=== PATIENT | male | born 1945 | race Caucasian/White ===

== ENCOUNTER 2016-08-07 12:32 | Emergency (ER) | payer MEDICAID ==
[~2016-08-07] VITALS: Ht 182.9 cm; Wt 97.5 kg
[~2016-08-07 12:32] MED LIST: OMEP10CA4 PO
--- NOTE | 2016-08-07 12:40 | NUR ---
AAOX3, BIBRA C/O MIDSTERNAL CHEST PAIN NON RADIATING, 2 SPRAY OF NITRO GIVEN IN THE FIELD DISTRICT ASSOCIATE JUDGE. RESP IS EVEN AND UNLABORED WITH NAD NOTED. SKIN IS WARM AND DRY. PLACED ON HOSPITAL GOWN, AND TOOL CRIB CLERK. WILL CONTINUOUSLY MONITOR THE PATIENT. AWAITING MD FOR EVAL.
--- NOTE | 2016-08-07 12:41 | NUR ---
DR PIERSON AT BS FOR JAE.
--- NOTE | 2016-08-07 12:45 | NUR ---
AT FOR JAE. PT REPORTS THAT HE HAS BEEN DRINKING NON-STOP FOR A MONTH, LAST ALCOHOL INTAKE WAS AT 0800 TODAY.
--- NOTE | 2016-08-07 12:46 | NUR ---
L HAND #20 IVHL NOTED VB NET DEVELOPER.
--- NOTE | 2016-08-07 12:59 | NUR ---
INSERTED IVHL RFA #18G, BLOOD DRAWN SENT TO THE LAB
[2016-08-07] MEDS ORDERED: IV NS 0.9% 1,000 ML ONE (13:03)
[2016-08-07] MEDS ORDERED: ONDANSETRON HCL/PF 4 MG/2 ML VIAL ONE ×2 (13:03→15:07)
[2016-08-07] MEDS ORDERED: IV SET PRIMARY PUMP SET 1 EA INFUS.SET MC ONE (13:03)
[2016-08-07] MEDS ORDERED: PANTOPRAZOLE 40 MG VIAL ONE (13:03)
[2016-08-07 13:06] LABS: BASOPHILS % (AUTO) 0.9 % (0.0-2.0); EOSINOPHILS # (AUTO) 0.1 /CMM (0.0-0.7); HEMATOCRIT 40 % (39-51); HEMOGLOBIN 13.5 g/dL (13.5-17.5); LYMPHOCYTES # (AUTO) 1.4 /CMM (0.8-4.8); LYMPHOCYTES % (AUTO) 32.3 % (20.0-44.0); MEAN CORPUSCULAR HEMOGLOBIN 31 PG (26.0-33.0); MEAN CORPUSCULAR HGB CONC 33 g/dl (31.0-36.0); MEAN CORPUSCULAR VOLUME 92 fL (80-96); MONOCYTES # (AUTO) 0.3 /CMM (0.1-1.30); NEUTROPHILS # (AUTO) 2.4 /CMM (1.8-8.9); NEUTROPHILS % (AUTO) 56.8 % (43.0-81.0); PLATELET COUNT (AUTO) 187 /CMM (150-450); RED BLOOD CELL COUNT(AUTO) 4.39 MIL/uL (4.5-6.0); WHITE BLOOD COUNT (AUTO) 4.3 K/uL (4.3-11.0)
[2016-08-07 13:17] LABS: CARBON DIOXIDE 26 mmol/L (21-32); CHLORIDE 107 mmol/L (98-107); CREATININE 0.9 mg/dL (0.6-1.3); GFR 84 mL/min (>60); GLUCOSE 107 mg/dL (74-106); POTASSIUM 3.6 mmol/L (3.5-5.1); SODIUM SERUM 143 mmol/L (136-145); UREA NITROGEN, BLOOD 11 mg/dL (7-18)
[2016-08-07 13:22] LABS: INR 1.06 (0.87-1.13)
[2016-08-07 13:26] LABS: TROPONIN I < 0.017 ng/mL (0.00-0.056)
[2016-08-07] MEDS ORDERED: PANTOPRAZOLE 40 MG VIAL IV ONE (13:30)
[2016-08-07] MEDS ORDERED: ONDANSETRON HCL/PF 4 MG/2 ML VIAL IVP ONE (13:30)
[2016-08-07] MEDS ORDERED: IV NS 0.9% 1,000 ML BAG IV ONE (13:30)
--- NOTE | 2016-08-07 15:15 | NUR ---
ADDITIONAL ZOFRAN IVP GIVEN ORDERED
[2016-08-07] MEDS ORDERED: ONDANSETRON HCL/PF 4 MG/2 ML VIAL IV ONE (15:30)
--- NOTE | 2016-08-07 16:48 | NUR ---
CALLED FOR FOOD TRAY
--- NOTE | 2016-08-07 17:30 | NUR ---
IV removed. Catheter intact and site benign. Pressure and 4x4 applied to site. No bleeding noted.
--- NOTE | 2016-08-07 17:40 | NUR ---
Patient discharged to home in stable condition. Written and verbal after care instructions given. Patient verbalizes understanding of instruction. Pt ambulatory with a steady gait.
[2016-08-07 18:04] VITALS: BP 126/77
== END 2016-08-07 18:05 | disposition home or self-care (01) ==
LOC: ER 12:36
DX: R07.89 Other chest pain (principal); K21.9 Gastro-esophageal reflux disease without esophagitis; K74.60 Unspecified cirrhosis of liver; Z86.73 Personal history of transient ischemic attack (TIA), and cerebral infarction without residual deficits; F10.20 Alcohol dependence, uncomplicated
CPT/HCPCS: 36415; 71010; 80048; 84484 ×2; 85025; 85730; 93005; 96361; 96374; 96375; 96376; 99285; A4606; C9113; J2405 ×2; J7030; Z7610

== ENCOUNTER 2016-12-23 23:27 | Emergency (ER) | payer MEDICAID ==
[~2016-12-23] VITALS: Ht 175.3 cm; Wt 79.8 kg
--- NOTE | 2016-12-24 00:30 | NUR ---
pt to er bed. 71 yo male bb self, states he feel depressed since his farther , denies SI/ HI at this time. skin warm and dry, rr even and unlabored. pt gowned, placed on groundwater monitoring technician. awaiting orders from provider, will continue to monitor
[2016-12-24 00:55] LABS: CALCIUM, SERUM 8.4 mg/dL (8.5-10.1); CREATININE 0.8 mg/dL (0.6-1.3); POTASSIUM 3.8 mmol/L (3.5-5.1)
--- NOTE | 2016-12-24 00:56 | NUR ---
geotechnical laboratory technician at bed side for blood draw
[2016-12-24 00:59] LABS: ALBUMIN 3.8 g/dL (3.4-5.0); BILIRUBIN,DIRECT 0.1 mg/dL (0.0-0.2); BILIRUBIN,TOTAL 0.5 mg/dL (0.2-1.0); TOTAL PROTEIN, SERUM 7.9 g/dL (6.4-8.2)
--- NOTE | 2016-12-24 01:00 | NUR ---
urine sample obtained and sent to lab
[2016-12-24 01:01] LABS: SALICYLATE 1.4 mg/dL (2.8-20.0)
[2016-12-24 01:02] LABS: BASOPHILS % (AUTO) 0.6 % (0.0-2.0); EOSINOPHILS # (AUTO) 0.2 /CMM (0.0-0.7); EOSINOPHILS % (AUTO) 3.4 % (0.0-6.0); HEMATOCRIT 39 % (39-51); LYMPHOCYTES # (AUTO) 1.6 /CMM (0.8-4.8); MEAN CORPUSCULAR HEMOGLOBIN 32 PG (26.0-33.0); MEAN CORPUSCULAR HGB CONC 33 g/dl (31.0-36.0); MEAN CORPUSCULAR VOLUME 94 fL (80-96); MONOCYTES # (AUTO) 0.5 /CMM (0.1-1.30); MONOCYTES % (AUTO) 8.7 % (2.0-12.0); NEUTROPHILS # (AUTO) 3.4 /CMM (1.8-8.9); NEUTROPHILS % (AUTO) 59.3 % (43.0-81.0); PLATELET COUNT (AUTO) 190 /CMM (150-450); RDW COEFFICIENT OF VARIATION 13.9 (11.5-15.0); RED BLOOD CELL COUNT(AUTO) 4.12 MIL/uL (4.5-6.0); WHITE BLOOD COUNT (AUTO) 5.8 K/uL (4.3-11.0)
[2016-12-24 01:05] LABS: APPEARANCE,URINE CLEAR (CLEAR); BILIRUBIN,URINE NEGATIVE (NEGATIVE); BLOOD, URINE NEGATIVE Ery/uL (NEGATIVE); COLOR,URINE YELLOW (YELLOW); KETONES,URINE NEGATIVE (NEGATIVE); LEUKOCYTE ESTERASE ,URINE NEGATIVE (NEGATIVE); NITRITE, URINE NEGATIVE (NEGATIVE); PH,URINE 5.5 (5.0-8.0); PROTEIN,URINE NEGATIVE (NEGATIVE); UGLUCOSE NEGATIVE (NEGATIVE); UROBILINOGEN,URINE 0.2 EU/dL (0.2)
--- NOTE | 2016-12-24 01:20 | NUR ---
called Art crisis team
--- NOTE | 2016-12-24 03:00 | NUR ---
art at bed side for eval
--- NOTE | 2016-12-24 03:00 | NUR ---
patient resting in er bed, nad noted, skin warm and dry, resp even and unlabored. will continue to monitor
--- NOTE | 2016-12-24 05:23 | NUR ---
patient resting in er bed, nad noted, skin warm and dry, resp even and unlabored. will continue to monitor
[2016-12-24 07:29] VITALS: BP 122/71
--- NOTE | 2016-12-24 07:30 | NUR ---
Patient discharged to home in stable condition. Written and verbal after care instructions given. Patient verbalizes understanding of instruction. PT ambulatory with a steady gait VITAL SIGNS WITHIN NORMAL LIMITS.
== END 2016-12-24 07:30 | disposition home or self-care (01) ==
LOC: ER 23:31
DX: R45.851 Suicidal ideations (principal); F32.9 Major depressive disorder, single episode, unspecified; K21.9 Gastro-esophageal reflux disease without esophagitis; K74.60 Unspecified cirrhosis of liver; Z86.73 Personal history of transient ischemic attack (TIA), and cerebral infarction without residual deficits
CPT/HCPCS: 36415; 80048-TC; 80076-TC; 80305; 81000-TC; 85025-TC; A4606; G0480; Z7610

== ENCOUNTER 2017-07-29 20:58 | Emergency (ER) | payer MEDICAID ==
[~2017-07-29] VITALS: Ht 167.6 cm; Wt 74.8 kg
--- NOTE | 2017-07-29 20:58 | NUR ---
RAY FROM HOME FOR LEFT SIDED CHEST PAIN 11/08 X 1 HR OFFICE MACHINE TECHNICIAN. PT ADMITS TO ETOH 3 HOURS OFFICE MACHINE TECHNICIAN. VSS NAD. WILL CONTINUE TO MONITOR FOR ANY CHANGES DURING THE SHIFT.
--- NOTE | 2017-07-29 21:21 | NUR ---
BLOOD TAKEN BY MOLD RUNNER
[2017-07-29 21:24] LABS: BASOPHILS % (AUTO) 0.5 % (0.0-2.0); EOSINOPHILS % (AUTO) 1.7 % (0.0-6.0); HEMATOCRIT 37 % (39-51); HEMOGLOBIN 12.9 g/dL (13.5-17.5); LYMPHOCYTES # (AUTO) 2.4 /CMM (0.8-4.8); LYMPHOCYTES % (AUTO) 37.9 % (20.0-44.0); MEAN CORPUSCULAR HGB CONC 35 g/dl (31.0-36.0); MEAN CORPUSCULAR VOLUME 87 fL (80-96); MONOCYTES # (AUTO) 0.4 /CMM (0.1-1.30); NEUTROPHILS # (AUTO) 3.3 /CMM (1.8-8.9); NEUTROPHILS % (AUTO) 53.9 % (43.0-81.0); PLATELET COUNT (AUTO) 254 /CMM (150-450); RDW COEFFICIENT OF VARIATION 12.9 (11.5-15.0); RED BLOOD CELL COUNT(AUTO) 4.25 MIL/uL (4.5-6.0); WHITE BLOOD COUNT (AUTO) 6.3 K/uL (4.3-11.0)
[2017-07-29] MEDS ORDERED: NITROGLYCERIN PACKET 1 GM PACKET ONE (21:27)
[2017-07-29] MEDS ORDERED: ASPIRIN 325 MG TABLET ONE (21:27)
[2017-07-29] MEDS ORDERED: NITROGLYCERIN PACKET 1 GM PACKET TD ONE (21:30)
[2017-07-29] MEDS ORDERED: ASPIRIN 325 MG TABLET PO ONE (21:30)
[2017-07-29 21:36] LABS: CALCIUM, SERUM 8.5 mg/dL (8.5-10.1); CARBON DIOXIDE 28 mmol/L (21-32); CHLORIDE 102 mmol/L (98-107); GLUCOSE 112 mg/dL (74-106); SODIUM SERUM 140 mmol/L (136-145); UREA NITROGEN, BLOOD 16 mg/dL (7-18)
[2017-07-29 21:39] LABS: INR 1.03 (0.85-1.15)
[2017-07-29 21:44] LABS: TROPONIN I < 0.017 ng/mL (0.00-0.056)
[2017-07-29 21:52] LABS: ALANINE AMINOTRANSFERASE 33 U/L (12-78); ALBUMIN 3.9 g/dL (3.4-5.0); ALKALINE PHOSPHATASE 100 U/L (46-116); ASPARTATE AMINOTRANSFERASE 25 U/L (15-37); BILIRUBIN,DIRECT 0.2 mg/dL (0.0-0.2); BILIRUBIN,TOTAL 0.6 mg/dL (0.2-1.0); TOTAL PROTEIN, SERUM 8.2 g/dL (6.4-8.2)
--- NOTE | 2017-07-29 22:06 | NUR ---
PT OKAY7 FOR D/C. TO FIND TRANSPORTATION FOR PT TO HOME
--- NOTE | 2017-07-29 22:46 | NUR ---
PT WITH NO CP. D/C AND INTO TAXI
[2017-07-29 22:47] VITALS: BP 141/78
== END 2017-07-29 22:47 | disposition home or self-care (01) ==
LOC: ER 20:59
DX: R07.89 Other chest pain (principal); F10.10 Alcohol abuse, uncomplicated; K21.9 Gastro-esophageal reflux disease without esophagitis; Z86.73 Personal history of transient ischemic attack (TIA), and cerebral infarction without residual deficits
CPT/HCPCS: 36415; 71045-TC; 80048-TC; 80076-TC; 84484-TC; 85025-TC; 85730-TC; A4606; Z7610

== ENCOUNTER 2018-08-28 21:39 | Inpatient (IN) | payer MEDICAID ==
[~2018-08-28] VITALS: Ht 172.7 cm; Wt 99.8 kg
--- NOTE | 2018-08-28 21:40 | NUR ---
PT PRESENTED TO THE ER WITH A C/O LEFT SIDED CP X 2 DAYS. PT STATED THAT IT FEELS LIKE A SHARP, STABBING PAIN. PT WENT TO ER 11 AND WAS TRIAGED. PT WAS PLACED ON THE MONITOR AND CONTINUOUS PULSE OX. TECH AT THE BEDSIDE TO SET UP FOR EKG.
--- NOTE | 2018-08-28 21:56 | NUR ---
IV STARTED IN RAC. BLOOD WAS DRAWN AND SENT TO LAB.
[2018-08-28] MEDS ORDERED: ASPIRIN 81 MG TAB.CHEW PO ONE ×2 (22:00→23:30)
[2018-08-28 22:08] LABS: BASOPHILS # (AUTO) 0.1 /CMM (0.0-0.2); BASOPHILS % (AUTO) 0.8 % (0.0-2.0); EOSINOPHILS % (AUTO) 1.7 % (0.0-6.0); HEMATOCRIT 41 % (39-51); LYMPHOCYTES # (AUTO) 2.4 /CMM (0.8-4.8); LYMPHOCYTES % (AUTO) 32.1 % (20.0-44.0); MEAN CORPUSCULAR HGB CONC 34 g/dl (31.0-36.0); MEAN CORPUSCULAR VOLUME 90 fL (80-96); MONOCYTES # (AUTO) 0.5 /CMM (0.1-1.30); MONOCYTES % (AUTO) 7.3 % (2.0-12.0); NEUTROPHILS # (AUTO) 4.3 /CMM (1.8-8.9); NEUTROPHILS % (AUTO) 58.1 % (43.0-81.0); PLATELET COUNT (AUTO) 338 /CMM (150-450); RED BLOOD CELL COUNT(AUTO) 4.61 MIL/uL (4.5-6.0); WHITE BLOOD COUNT (AUTO) 7.5 K/uL (4.3-11.0)
[2018-08-28] MEDS ORDERED: ASPIRIN 81 MG TAB.CHEW ONE (22:10)
[2018-08-28 22:14] LABS: CALCIUM, SERUM 8.2 mg/dL (8.5-10.1); CARBON DIOXIDE 27 mmol/L (21-32); CHLORIDE 100 mmol/L (98-107); CREATININE 0.8 mg/dL (0.6-1.3); GLUCOSE 105 mg/dL (74-106); POTASSIUM 3.9 mmol/L (3.5-5.1); SODIUM SERUM 139 mmol/L (136-145); UREA NITROGEN, BLOOD 12 mg/dL (7-18)
--- NOTE | 2018-08-28 22:40 | NUR ---
PT C/O OF HAVING TO URINATE. PT WAS GIVEN THE URINAL AND PT IS USING THE URINAL.
[2018-08-28] MEDS ORDERED: MAG HYDROX/AL HYDROX/SIMETH 30 ML UDC PO PRN ×2 (23:30→23:45)
[2018-08-28] MEDS ORDERED: ACETAMINOPHEN 325 MG TABLET PO PRN ×2 (23:30→23:45)
[2018-08-28] MEDS ORDERED: ONDANSETRON HCL/PF 4 MG/2 ML VIAL IVP PRN (23:30)
[2018-08-28] MEDS ORDERED: HYDROCODONE/APAP 5/325MG 1 EACH TABLET PO PRN (23:30)
[2018-08-28] MEDS ORDERED: Z GUARD REMEDY 2 OZ OINT TP PRN ×2 (23:30→23:45)
[2018-08-28] MEDS ORDERED: ZOLPIDEM TARTRATE 5 MG TABLET PO PRN (23:30)
[2018-08-28] MEDS ORDERED: MAGNESIUM HYDROXIDE 30 ML UDC PO PRN ×2 (23:30→23:45)
--- NOTE | 2018-08-29 00:29 | NUR ---
SENIOR COBOL DEVELOPER NOTE RECEIVED PT IN STABLE CONDITION VIA LILIANA FROM ER. PT IS A&O X3, ABLE TO MAKE NEEDS KNOWN. MOSTLY ICELANDIC SPEAKING, UNDERSTANDS ICELANDIC. NO SIGNS OF SOB OR DISTRESS, NO C/O PAIN. PT REFUSED BODY CHECK TO BE DONE BUT AGREED TO HAVE PHOTOS TAKEN OF LIZZETH. ELBOW RASH. IV IN R AC PATENT AND INTACT. TELE MONITOR READING SINUS IZA 56. ALL BELONGINGS ACCOUNTED AND SIGNED FOR. ALL CURRENT NEEDS MET. BED LOW, LOCKED, UPPER RAILS UP AND CALL LIGHT WITHIN REACH. WILL CONT. TO MONITOR.
[2018-08-29] MEDS ORDERED: ASPIRIN 81 MG TAB.CHEW PO ONE (01:00)
[2018-08-29 01:55] VITALS: BP 114/70
[2018-08-29 04:00] VITALS: BP 110/60
[2018-08-29] MEDS: ONDANSETRON HCL/PF 4 MG/2 ML VIAL IVP PRN ×2 (05:02→21:34)
--- NOTE | 2018-08-29 06:23 | NUR ---
MS RN NOTE PT IS A&O X3, ABLE TO MAKE NEEDS KNOWN. MOSTLY VIETNAMESE SPEAKING, UNDERSTANDS SERBIAN. NO SIGNS OF SOB OR DISTRESS, NO C/O PAIN. IV IN R AC PATENT AND INTACT. TELE MONITOR READING SINUS IZA 62. ALL CURRENT NEEDS MET. BED LOW, LOCKED, UPPER RAILS UP AND CALL LIGHT WITHIN REACH. WILL CONT. TO MONITOR AND ENDORSE TO NEXT SHIFT FOR MATTHEW.
[2018-08-29 06:54] LABS: BASOPHILS % (AUTO) 0.6 % (0.0-2.0); EOSINOPHILS % (AUTO) 1.9 % (0.0-6.0); HEMATOCRIT 39 % (39-51); HEMOGLOBIN 13.3 g/dL (13.5-17.5); LYMPHOCYTES # (AUTO) 2.2 /CMM (0.8-4.8); LYMPHOCYTES % (AUTO) 41.5 % (20.0-44.0); MEAN CORPUSCULAR HGB CONC 34 g/dl (31.0-36.0); MEAN CORPUSCULAR VOLUME 89 fL (80-96); MONOCYTES # (AUTO) 0.4 /CMM (0.1-1.30); MONOCYTES % (AUTO) 7.3 % (2.0-12.0); NEUTROPHILS # (AUTO) 2.6 /CMM (1.8-8.9); NEUTROPHILS % (AUTO) 48.7 % (43.0-81.0); PLATELET COUNT (AUTO) 312 /CMM (150-450); RED BLOOD CELL COUNT(AUTO) 4.36 MIL/uL (4.5-6.0); WHITE BLOOD COUNT (AUTO) 5.3 K/uL (4.3-11.0)
[2018-08-29 07:17] LABS: ALANINE AMINOTRANSFERASE 21 U/L (12-78); ALBUMIN 3.5 g/dL (3.4-5.0); ALKALINE PHOSPHATASE 91 U/L (46-116); ASPARTATE AMINOTRANSFERASE 21 U/L (15-37); BILIRUBIN,TOTAL 0.4 mg/dL (0.2-1.0); CALCIUM, SERUM 8.3 mg/dL (8.5-10.1); CARBON DIOXIDE 28 mmol/L (21-32); CHLORIDE 105 mmol/L (98-107); CREATININE 0.7 mg/dL (0.6-1.3); GLUCOSE 91 mg/dL (74-106); PHOSPHORUS 2.9 mg/dL (2.5-4.9); POTASSIUM 3.9 mmol/L (3.5-5.1); SODIUM SERUM 143 mmol/L (136-145); TOTAL PROTEIN, SERUM 7.2 g/dL (6.4-8.2); UREA NITROGEN, BLOOD 12 mg/dL (7-18)
--- NOTE | 2018-08-29 07:29 | NUR ---
RN OPENING NOTE PT WAS RECEIVED IN BED AT LOWEST AND LOCKED POSITION WITH SIDE RAILS UP X2, A/O X3 DANISH SPEAKING, BREATHING EVEN AND UNLABORED ON RA, COMPLAINTS OF PRESSURE ON CHEST OF 7 OUT OF 10 BUT IN NO DISTRESS, IV IS PATENT AND INTACT, SAFETY PRECAUTIONS IN PLACE, CALL LIGHT WITHIN REACH, WILL MONITOR PT ACCORDINGLY.
[2018-08-29 08:00] VITALS: BP 124/80
[2018-08-29] MEDS ORDERED: LORAZEPAM 1 MG TABLET PO PRN (08:30)
[2018-08-29] MEDS: LORAZEPAM INJ 2 MG/ML VIAL IV PRN ×3 (09:00→23:44)
[2018-08-29] MEDS ORDERED: NITROGLYCERIN 0.4 MG/TAB BOTTLE SL PRN (09:00)
[2018-08-29] MEDS: MULTIVITAMINS,THERAGRAN 1 UDTAB TABLET PO SCH (09:00)
[2018-08-29] MEDS: FOLIC ACID 1 MG TABLET PO SCH (09:00)
[2018-08-29] MEDS: THIAMINE HCL 100 MG TABLET PO SCH (09:00)
[2018-08-29] MEDS: IV NS 0.9% 1,000 ML IV PRN (09:01)
[2018-08-29 10:14] LABS: CHOLESTEROL 165 mg/dL (<200); HDL CHOLESTEROL 44 mg/dL (40-60); LDL 74 mg/dL (0-99); THYROID STIMULATING HORMONE 1.999 uIU/mL (0.358-3.74); TRIGLYCERIDES 346 mg/dL (30-150)
--- NOTE | 2018-08-29 15:07 | NUR ---
RN NOTE SON ELAM PUBLIC INTERVIEWER NOTIFIED OF PT HAVING BRIGHT BLOOD IN STOOL. INFORMED THAT PT HAD TROUBLING POOPING TWO DAYS AGO AND HE FORCED/STRAINED HIMSELF TO GO AND THAT IS WHEN THE BLEEDING STARTED. HE HAD A RECENT BM WHERE HE FORCED HIMSELF AND BRIGHT RED BLOOD WAS NOTED. SON TOBAR NOTIFIED AND ORDERS FOR STOOL SOFTERNER DAILY GIVEN, WILL IMPLEMENT AND MONITOR ACCORDINGLY
[2018-08-29 16:00] VITALS: BP 130/82
[2018-08-29] MEDS ORDERED: DOCUSATE SODIUM 100 MG CAPSULE PO ONE (17:00)
--- NOTE | 2018-08-29 18:17 | NUR ---
RN CLOSING NOTE PT IN BED AT LOWEST AND LOCKED POSITION WITH SIDE RAILS UP X2, A/O X3 BREATHING EVEN AND UNLABORED ON RA WITH NO COMPLAINTS OF ANY PAIN OR DISTRESS AT THIS TIME, IV IS PATENT AND INTACT, SAFETY PRECAUTIONS IN PLACE, CALL LIGHT WITHIN REACH, ALL NEEDS ATTENDED TO, WILL ENDORSE TO MOVIE PROJECTIONIST RN FOR MATTHEW.
--- NOTE | 2018-08-29 19:11 | NUR ---
AIR CARRIER OPERATIONS INSPECTOR OPENING NOTES Received patient A/Ox4, awake, sitting on bed. With patent peripheral IV line RAC G#18 with NS infusing well @75ml/hr. With complaints of fresh blood in stool, patient claimed straining on defecation. Pt just started on Colace today. Instructed patient to avoid straining, increase OFI and fiber in diet. On fall precautions, call light within easy reach. Will continue to monitor accordingly.
[2018-08-29 20:00] VITALS: BP 116/75
[2018-08-29] MEDS: HYDROCODONE/APAP 5/325MG 1 EACH TABLET PO PRN (20:48)
--- NOTE | 2018-08-29 21:10 | NUR ---
Met with patient, he speaks Hebrew only. States he lives alone on te second floor apartment with elevator access. Prior to hospitalization, he was ambulatory and independent with adl's. Has no DME or homehealth reported. He plan to go and stay at his brother's home after discharge. He will take the bus or taxi on dc. Addendum: 08/29/18 at 2111 by HIEN GASCA RN Amended: Links added.
[2018-08-29] MEDS: ZOLPIDEM TARTRATE 5 MG TABLET PO PRN (21:34)
[2018-08-30] VITALS: BP 134/65
[2018-08-30 04:00] VITALS: BP 135/80
[2018-08-30] MEDS: IV NS 0.9% 1,000 ML IV PRN ×2 (04:47→18:22)
[2018-08-30] MEDS: ONDANSETRON HCL/PF 4 MG/2 ML VIAL IVP PRN ×2 (04:51→13:52)
[2018-08-30 06:18] LABS: BASOPHILS % (AUTO) 0.7 % (0.0-2.0); HEMATOCRIT 37 % (39-51); HEMOGLOBIN 12.6 g/dL (13.5-17.5); LYMPHOCYTES # (AUTO) 1.9 /CMM (0.8-4.8); LYMPHOCYTES % (AUTO) 27.9 % (20.0-44.0); MEAN CORPUSCULAR HGB CONC 34 g/dl (31.0-36.0); MEAN CORPUSCULAR VOLUME 89 fL (80-96); MONOCYTES # (AUTO) 0.7 /CMM (0.1-1.30); MONOCYTES % (AUTO) 10.1 % (2.0-12.0); NEUTROPHILS % (AUTO) 59.3 % (43.0-81.0); PLATELET COUNT (AUTO) 274 /CMM (150-450); RED BLOOD CELL COUNT(AUTO) 4.18 MIL/uL (4.5-6.0); WHITE BLOOD COUNT (AUTO) 6.7 K/uL (4.3-11.0)
[2018-08-30 06:23] LABS: CALCIUM, SERUM 7.7 mg/dL (8.5-10.1); CARBON DIOXIDE 29 mmol/L (21-32); CHLORIDE 103 mmol/L (98-107); CREATININE 0.9 mg/dL (0.6-1.3); GLUCOSE 87 mg/dL (74-106); POTASSIUM 3.6 mmol/L (3.5-5.1); SODIUM SERUM 138 mmol/L (136-145); UREA NITROGEN, BLOOD 14 mg/dL (7-18)
[2018-08-30] MEDS: LORAZEPAM INJ 2 MG/ML VIAL IV PRN ×2 (06:32→13:52)
--- NOTE | 2018-08-30 06:32 | NUR ---
HIV CTS SPECIALIST CLOSING NOTES Patient intermittently asleep throughout the shift. Medicated for pain, per patient not effective but refused to have additional pain meds. Medicated for N/V, noted effective. Patient claimed feeling anxious, medicated with Ativan as ordered, noted effective. All nursing needs attended. On fall precautions, call light within easy reach. Endorsed to the next shift. Addendum: 08/30/18 at 0650 by JANAE KAUR RN On tele monitor with NS noted.
--- NOTE | 2018-08-30 07:42 | NUR ---
PIECE WORKER OPENING NOTES RECEIVED PT ASLEEP, EASILY AROUSED. A/O X4. UZBEK SPEAKING AND ABLE TO UNDERSTAND AND SPEAK A LITTLE ALBANIAN. PT TOLERATING RA, WITH NO ACUTE RESPIRATORY DISTRESS NOTED. PT DENIES PAIN OR ANY DISCOMFORT AT THIS TIME. PT ALSO DENIES QUESTIONS AND CONCERNS. PT ON TELEMONITORING WITH SB, HR OF 51. IVF NS AT 75ML/HR TO RAC 18, INTACT AND FLUID INFUSING WELL. PT KEPT COMFORTABLE. PT'S BED IN LOWEST, LOCKED POSITION WITH SR X2. CALL LIGHT KEPT WITHIN REACH. WILL CONTINUE PLAN OF CARE.
[2018-08-30 08:00] VITALS: BP 141/68
[2018-08-30] MEDS ORDERED: FOLI1TAB16 PO (08:24)
[2018-08-30] MEDS ORDERED: THIA100T88 PO (08:24)
[2018-08-30] MEDS ORDERED: LORA-259 PO (08:24)
[2018-08-30] MEDS ORDERED: ONDA4TAB5 PO (08:24)
[2018-08-30] MEDS ORDERED: MULT1CAP34 PO (08:24)
[2018-08-30] MEDS: FOLIC ACID 1 MG TABLET PO SCH (08:46)
[2018-08-30] MEDS: MULTIVITAMINS,THERAGRAN 1 UDTAB TABLET PO SCH (08:46)
[2018-08-30] MEDS: THIAMINE HCL 100 MG TABLET PO SCH (08:46)
[2018-08-30] MEDS ORDERED: DOCUSATE SODIUM 100 MG CAPSULE PO SCH (09:00)
[2018-08-30] MEDS: HYDROCODONE/APAP 5/325MG 1 EACH TABLET PO PRN ×2 (09:05→20:14)
[2018-08-30 16:00] VITALS: BP 132/74
--- NOTE | 2018-08-30 17:58 | NUR ---
RN NOTES THERAPIST RADIATION DT MADE AWARE REGARDING PT'S REQUEST FOR POSTPONED DISCHARGE. INSTEAD OF TODAY, BROTHER WILL BE PICKING PT UP EARLY TOMORROW AROUND6-7AM. BE/BECCA MADE AWARE. WILL LET INCOMING NIGHT NURSE.
--- NOTE | 2018-08-30 18:47 | NUR ---
MS RN CLOSING NOTES PT REMAINS RESTING IN BED, AWAKE. A/O X4. PT TOLERATING RA, WITH NO ACUTE RESPIRATORY DISTRESS NOTED. PT DENIES PAIN OR ANY DISCOMFORT AT THIS TIME. IVF NS AT 75ML/HR TO RAC 18, INTACT AND FLUID INFUSING WELL. ALL NEEDS AND CARE ATTENDED. PT DENIES ANY DIARRHEA AT THIS TIME AND PREFERS NOT TO TAKE STOOL SOFTENERS AT THIS TIME. PT'S DISCHARGE PAPERS ARE DONE AND PT REFUSED FOR PICTURES TO BE TAKEN EARLIER. PT KEPT COMFORTABLE. PT'S BED IN LOWEST, LOCKED POSITION WITH SR X2. CALL LIGHT KEPT WITHIN REACH. WILL ENDORSE TO INCOMING NIGHT NURSE FOR MATTHEW.
--- NOTE | 2018-08-30 18:50 | NUR ---
RN medsurg opening notes Received Pt from morning nurse. Pt is alert and oriented X4. Pt is sitting in bed comfortably watching TV. Respiration is equal and unlabored. Pt denies any pain or any discomfort. No Nausea or vomiting. No diarrhea. Afebrile. IV sites is intact, patent and infusing well NS 0.9% @ 75ml/hr. Safety precautions is maintained. Bed at low position and call light is within reach. Instructed to call. Will continue to monitor and assist all needs.
[2018-08-30 20:00] VITALS: BP 147/79
--- NOTE | 2018-08-30 20:10 | NUR ---
RN medsursirisha notes Pt is complaining of pain on right shoulder 7/10 on pain scale. Administered Norco5-325 Tab/PO. VS is stable. Will continue to monitor.
[2018-08-30] MEDS: ZOLPIDEM TARTRATE 5 MG TABLET PO PRN (22:20)
[2018-08-31] MEDS: LORAZEPAM INJ 2 MG/ML VIAL IV PRN (01:22)
[2018-08-31 06:00] VITALS: BP 141/89
--- NOTE | 2018-08-31 06:15 | NUR ---
TEJ [place] D/C notes Pt is alert and oriented X4. Pt D/C instruction sheet, medicines prescription and a bus voucher card have been given. Pt verbalized understanding medication times, dosages and adverse effect. Instructed Pt to stop drinking alcohol, eating healthy food and reduce stress. Pt verbalized understanding. Skin assessment done and skin pictures taken. Belongings checked list done. D/C Pt at stable condition, BP 141/89, P 84, Temp 98.1, R 18, O2 sat 96%. Pt has been ambulating in the room without chest pain or SOB. Pt escorted via wheel chair and all belongings sent with pt.
== END 2018-08-31 06:15 | disposition home or self-care (01) | DRG 243 ==
LOC: ER 21:44 → TELE 08-29 00:21 → MED 08-30 09:17
PROVIDERS: ADMIT Student in an Organized Health Care Education/Training Program; ATTEND Nurse Practitioner Acute Care
DX: K21.9 Gastro-esophageal reflux disease without esophagitis (principal); K74.60 Unspecified cirrhosis of liver; F10.129 Alcohol abuse with intoxication, unspecified; I25.10 Atherosclerotic heart disease of native coronary artery without angina pectoris; I25.2 Old myocardial infarction; Z86.73 Personal history of transient ischemic attack (TIA), and cerebral infarction without residual deficits; M25.512 Pain in left shoulder
CPT/HCPCS: 36415; 71045-TC; 80048-TC; 80053-TC; 80061-TC; 83735-TC; 84100-TC; 84443-TC; 84484-TC; 85025-TC; 87081-TC; 93307-TC; G0378; J2060; J2405; J7030

== ENCOUNTER 2018-10-06 19:05 | Emergency (ER) | payer MEDICAID ==
[~2018-10-06] VITALS: Ht 172.7 cm; Wt 99.8 kg
[~2018-10-06 19:05] MED LIST changes: +FOLI1TAB16 PO; +LORA-259 PO; +MULT1CAP34 PO; -OMEP10CA4 PO; +ONDA4TAB5 PO; +THIA100T88 PO
--- NOTE | 2018-10-06 19:47 | NUR ---
PT NOW COMPLAINING OF LEFT SIDED CHEST PAIN. PT TO ER BED 7.
--- NOTE | 2018-10-06 19:50 | NUR ---
BIBRA 39, FROM [facility], PER EMT "FOR ETOH AND BEING EMOTIONALLY UPSET". KAZAKH-SPEAKING WITH SOME COMPREHENSION OF THAI. STATES HAVING LEFT-SIDED CHEST PAIN THAT IS 7/10. ALSO STATES HAVING "PROBLEMS", DID NOT ELABORATE. HAD 7 BEERS TONIGHT AND "DOES NOT TAKE BP MED WHEN HE DRINKS". ON MONITOR AND SEEN BY DR ARMSTRONG. AWAITING ORDERS.
[2018-10-06] MEDS ORDERED: ONDANSETRON HCL/PF 4 MG/2 ML VIAL ONE (20:09)
[2018-10-06] MEDS ORDERED: FAMOTIDINE/PF INJ 20 MG/2 ML VIAL IV ONE ×2 (20:09→20:30)
--- NOTE | 2018-10-06 20:15 | NUR ---
XRAY AT BEDSIDE
[2018-10-06 20:23] LABS: BASOPHILS # (AUTO) 0.1 /CMM (0.0-0.2); BASOPHILS % (AUTO) 0.7 % (0.0-2.0); EOSINOPHILS % (AUTO) 1.8 % (0.0-6.0); HEMATOCRIT 41 % (39-51); LYMPHOCYTES # (AUTO) 2.5 /CMM (0.8-4.8); LYMPHOCYTES % (AUTO) 31.3 % (20.0-44.0); MEAN CORPUSCULAR HGB CONC 34 g/dl (31.0-36.0); MEAN CORPUSCULAR VOLUME 89 fL (80-96); MONOCYTES # (AUTO) 0.5 /CMM (0.1-1.30); MONOCYTES % (AUTO) 6.6 % (2.0-12.0); NEUTROPHILS # (AUTO) 4.8 /CMM (1.8-8.9); NEUTROPHILS % (AUTO) 59.6 % (43.0-81.0); PLATELET COUNT (AUTO) 232 /CMM (150-450)
[2018-10-06] MEDS ORDERED: ONDANSETRON HCL/PF 4 MG/2 ML VIAL IVP ONE (20:30)
[2018-10-06] MEDS ORDERED: IV NS 0.9% 1,000 ML BAG IV ONE (20:30)
--- NOTE | 2018-10-06 20:32 | NUR ---
IV ACCESS OBTAINED, MEDS GIVEN, IVF INFUSING. PT GIVEN BLANKET AND LIGHTS OFF FOR COMFORT. WILL CONT TO OBSERVE.
[2018-10-06 20:38] LABS: CALCIUM, SERUM 8.2 mg/dL (8.5-10.1); CARBON DIOXIDE 28 mmol/L (21-32); CHLORIDE 100 mmol/L (98-107); CREATININE 0.9 mg/dL (0.6-1.3); GLUCOSE 97 mg/dL (74-106); SODIUM SERUM 138 mmol/L (136-145); UREA NITROGEN, BLOOD 17 mg/dL (7-18)
[2018-10-06 20:44] LABS: ALANINE AMINOTRANSFERASE 35 U/L (12-78); ALBUMIN 3.8 g/dL (3.4-5.0); ALCOHOL, BLOOD 233 mg/dL (0-0); ALKALINE PHOSPHATASE 96 U/L (46-116); ASPARTATE AMINOTRANSFERASE 31 U/L (15-37); BILIRUBIN,DIRECT 0.1 mg/dL (0.0-0.2); BILIRUBIN,TOTAL 0.8 mg/dL (0.2-1.0); TOTAL PROTEIN, SERUM 7.8 g/dL (6.4-8.2)
--- NOTE | 2018-10-06 22:13 | NUR ---
IV removed. Catheter intact and site benign. Pressure and 4x4 applied to site. No bleeding noted.Patient discharged to home in stable condition. Written and verbal after care instructions given. Patient verbalizes understanding of instruction.
[2018-10-06 22:14] VITALS: BP 118/76
[2018-10-06 22:21] LABS: APPEARANCE,URINE CLEAR (CLEAR); BILIRUBIN,URINE NEGATIVE (NEGATIVE); BLOOD, URINE NEGATIVE Ery/uL (NEGATIVE); COLOR,URINE YELLOW (YELLOW); KETONES,URINE NEGATIVE (NEGATIVE); LEUKOCYTE ESTERASE ,URINE NEGATIVE (NEGATIVE); NITRITE, URINE NEGATIVE (NEGATIVE); PROTEIN,URINE NEGATIVE (NEGATIVE); UGLUCOSE NEGATIVE (NEGATIVE); UROBILINOGEN,URINE 0.2 EU/dL (0.2)
== END 2018-10-06 22:15 | disposition home or self-care (01) ==
LOC: ER 19:09
DX: F10.10 Alcohol abuse, uncomplicated (principal); I10 Essential (primary) hypertension; Y90.8 Blood alcohol level of 240 mg/100 ml or more; Z86.73 Personal history of transient ischemic attack (TIA), and cerebral infarction without residual deficits
CPT/HCPCS: 36415; 71045; 80048; 80076; 80307; 81001; 84484; 85025; 93005 ×2; 96374; 96375; 99284; J2405; J3490; J7030; 81000-TC; G0480

== ENCOUNTER 2018-10-20 23:51 | Emergency (ER) | payer MEDICAID ==
[~2018-10-20] VITALS: Ht 172.7 cm; Wt 99.8 kg
--- NOTE | 2018-10-21 | NUR ---
CALLED PT TO BE TRIAGED, SLEEPING IN WAITING ROOM. DOES NOT RESPOND. WILL FOLLOW UP
--- NOTE | 2018-10-21 00:10 | NUR ---
BIBS FOR C/O WEAKNESS AND N/V, ETOH. PT REPORTED HE HAD 6 BOTTLES OF BEER AT 2100. PT WAS PLACED ON A MONITOR, VSS. WILL CONT TO MONITOR ,
[2018-10-21] MEDS ORDERED: ONDANSETRON HCL/PF 4 MG/2 ML VIAL ONE (00:26)
[2018-10-21 00:27] LABS: BASOPHILS % (AUTO) 0.6 % (0.0-2.0); EOSINOPHILS % (AUTO) 4.6 % (0.0-6.0); HEMATOCRIT 40 % (39-51); HEMOGLOBIN 13.7 g/dL (13.5-17.5); LYMPHOCYTES # (AUTO) 2.3 /CMM (0.8-4.8); LYMPHOCYTES % (AUTO) 37.1 % (20.0-44.0); MEAN CORPUSCULAR HGB CONC 35 g/dl (31.0-36.0); MEAN CORPUSCULAR VOLUME 91 fL (80-96); MONOCYTES # (AUTO) 0.5 /CMM (0.1-1.30); MONOCYTES % (AUTO) 8.5 % (2.0-12.0); NEUTROPHILS % (AUTO) 49.2 % (43.0-81.0); PLATELET COUNT (AUTO) 214 /CMM (150-450); RED BLOOD CELL COUNT(AUTO) 4.37 MIL/uL (4.5-6.0); WHITE BLOOD COUNT (AUTO) 6.2 K/uL (4.3-11.0)
[2018-10-21] MEDS ORDERED: ONDANSETRON HCL/PF 4 MG/2 ML VIAL IVP ONE (00:30)
[2018-10-21] MEDS ORDERED: IV NS 0.9% 1,000 ML BAG IV ONE (00:30)
[2018-10-21 00:34] LABS: CALCIUM, SERUM 8.6 mg/dL (8.5-10.1); CARBON DIOXIDE 30 mmol/L (21-32); CHLORIDE 104 mmol/L (98-107); GLUCOSE 99 mg/dL (74-106); POTASSIUM 4.1 mmol/L (3.5-5.1); SODIUM SERUM 140 mmol/L (136-145); UREA NITROGEN, BLOOD 10 mg/dL (7-18)
[2018-10-21 00:40] LABS: ALANINE AMINOTRANSFERASE 22 U/L (12-78); ALBUMIN 3.7 g/dL (3.4-5.0); ALKALINE PHOSPHATASE 101 U/L (46-116); ASPARTATE AMINOTRANSFERASE 18 U/L (15-37); BILIRUBIN,DIRECT 0.1 mg/dL (0.0-0.2); BILIRUBIN,TOTAL 0.4 mg/dL (0.2-1.0); LIPASE 236 U/L (73-393)
--- NOTE | 2018-10-21 01:45 | NUR ---
Patient is resting comfortably in bed with eyes closed. Easily aroused. VSS
--- NOTE | 2018-10-21 05:17 | NUR ---
Patient is resting comfortably in bed with eyes closed. Easily aroused. VSS
--- NOTE | 2018-10-21 06:11 | NUR ---
Patient discharged to home in stable condition. Written and verbal after care instructions given. Patient verbalizes understanding of instruction. pt noted w/ steady gate
[2018-10-21 06:12] VITALS: BP 114/75
== END 2018-10-21 06:13 | disposition home or self-care (01) ==
LOC: ER 23:53
DX: F10.129 Alcohol abuse with intoxication, unspecified (principal); I10 Essential (primary) hypertension; R11.2 Nausea with vomiting, unspecified; Z79.899 Other long term (current) drug therapy; Y90.6 Blood alcohol level of 120-199 mg/100 ml
CPT/HCPCS: 36415; 71045; 80048; 80076; 80307; 83690; 84484; 85025; 93005; 96361; 96374; 99284; J2405; J7030; G0480

== ENCOUNTER 2019-11-17 23:39 | Emergency (ER) | payer SELFPAY ==
[~2019-11-17] VITALS: Ht 170.2 cm; Wt 95.3 kg
[2019-11-17 23:39] VITALS: BP 132/69
--- NOTE | 2019-11-18 01:29 | NUR ---
Patient discharged to home in stable condition. Written and verbal after care instructions given. Patient verbalizes understanding of instruction.
--- NOTE | 2019-11-18 01:30 | NUR ---
CT RESULTS PROVIDED TO PATIENT.
== END 2019-11-18 01:31 | disposition home or self-care (01) ==
LOC: ER 23:41
DX: S30.1XXA Contusion of abdominal wall, initial encounter (principal); S09.90XA Unspecified injury of head, initial encounter; F10.129 Alcohol abuse with intoxication, unspecified; I10 Essential (primary) hypertension; Z86.73 Personal history of transient ischemic attack (TIA), and cerebral infarction without residual deficits; Z79.899 Other long term (current) drug therapy; W18.39XA Other fall on same level, initial encounter; Y93.89 Activity, other specified; Y92.89 Other specified places as the place of occurrence of the external cause; Y99.8 Other external cause status; Y90.9 Presence of alcohol in blood, level not specified
CPT/HCPCS: 70450-TC

== ENCOUNTER 2019-11-18 23:33 | Emergency (ER) | payer SELFPAY ==
[~2019-11-18] VITALS: Ht 170.2 cm; Wt 95.3 kg
--- NOTE | 2019-11-18 23:40 | NUR ---
CALLED PT IN TO TRIAGE ROOM. NO ANSWER
--- NOTE | 2019-11-19 00:22 | NUR ---
CALLED PT IN TO TRIAGE ROOM. PT DOESN'T WANNA COME IN NOW.
[2019-11-19 00:24] VITALS: BP 139/75
[2019-11-19] MEDS ORDERED: ONDANSETRON 4 MG TAB.RAPDIS SL ONE (00:30)
[2019-11-19] MEDS ORDERED: ONDANSETRON 4 MG TAB.RAPDIS ONE (00:40)
--- NOTE | 2019-11-19 00:51 | NUR ---
Patient discharged to home in stable condition. Written and verbal after care instructions given. Patient verbalizes understanding of instruction.
== END 2019-11-19 00:52 | disposition home or self-care (01) ==
LOC: ER 23:33
DX: F10.129 Alcohol abuse with intoxication, unspecified (principal); R11.0 Nausea; I10 Essential (primary) hypertension; Z86.73 Personal history of transient ischemic attack (TIA), and cerebral infarction without residual deficits; Z79.899 Other long term (current) drug therapy; Y90.9 Presence of alcohol in blood, level not specified
CPT/HCPCS: 99283; Q0162

== ENCOUNTER 2019-12-17 21:01 | Inpatient (IN) | payer MEDICAID ==
[~2019-12-17] VITALS: Ht 170.2 cm; Wt 87.1 kg
--- NOTE | 2019-12-17 21:05 | NUR ---
PT [id number] FROM BUS STOP C/O L SIDED CP 8/10 RADIATING TO THE L ARM. +PRESSURE LIKE-PAIN. +SOB -DIAPHORESIS +NAUSEA. PT GIVEN [id number] AND 1SPRAYNITRO LEAD REFINER. PT AAOX4, VSS, RESPIRATIONS EVEN AND UNLABORED ON RA W/ NAD NOTED. PT CONNECTED TO THE CUFF SETTER LOCKSTITCH AND POX
--- NOTE | 2019-12-17 21:12 | NUR ---
BLOOD COLLECTED AND SENT TO LAB
--- NOTE | 2019-12-17 21:12 | NUR ---
EKG AT BEDSIDE
--- NOTE | 2019-12-17 21:19 | NUR ---
XRAY AT BEDSIDE
[2019-12-17 21:56] LABS: BASOPHILS % (AUTO) 0.8 % (0.0-2.0); EOSINOPHILS % (AUTO) 1.7 % (0.0-6.0); HEMATOCRIT 36 % (39-51); LYMPHOCYTES # (AUTO) 1.8 /CMM (0.8-4.8); LYMPHOCYTES % (AUTO) 31.1 % (20.0-44.0); MEAN CORPUSCULAR HGB CONC 33 g/dl (31.0-36.0); MEAN CORPUSCULAR VOLUME 95 fL (80-96); MONOCYTES # (AUTO) 0.5 /CMM (0.1-1.30); MONOCYTES % (AUTO) 8.8 % (2.0-12.0); NEUTROPHILS # (AUTO) 3.4 /CMM (1.8-8.9); NEUTROPHILS % (AUTO) 57.6 % (43.0-81.0); PLATELET COUNT (AUTO) 191 /CMM (150-450); RED BLOOD CELL COUNT(AUTO) 3.84 MIL/uL (4.5-6.0); WHITE BLOOD COUNT (AUTO) 5.9 K/uL (4.3-11.0)
--- NOTE | 2019-12-17 22:11 | NUR ---
CALLED [facility], PAGED SYDNEE NINA
[2019-12-17 22:14] LABS: CARBON DIOXIDE 24 mmol/L (21-32); CHLORIDE 106 mmol/L (98-107); CREATININE 1.1 mg/dL (0.6-1.3); GLUCOSE 75 mg/dL (74-106); POTASSIUM 3.6 mmol/L (3.5-5.1); SODIUM SERUM 142 mmol/L (136-145); UREA NITROGEN, BLOOD 11 mg/dL (7-18)
[2019-12-17] MEDS ORDERED: OMEP20CA15 PO (23:17)
[2019-12-17] MEDS ORDERED: MAG HYDROX/AL HYDROX/SIMETH 30 ML UDC PO PRN (23:30)
[2019-12-17] MEDS ORDERED: DOCUSATE SODIUM 100 MG CAPSULE PO PRN (23:30)
[2019-12-17] MEDS ORDERED: NITROGLYCERIN 0.4 MG/TAB BOTTLE SL PRN (23:30)
[2019-12-17] MEDS ORDERED: ACETAMINOPHEN 325 MG TABLET PO PRN (23:30)
[2019-12-17] MEDS ORDERED: IV NS 0.9% 1,000 ML IV SCH (23:30)
--- NOTE | 2019-12-17 23:55 | NUR ---
PLATE GLASS GRINDER AT BEDSIDE FOR BLOOD DRAW
[2019-12-18] MEDS ORDERED: LORAZEPAM INJ 2 MG/ML VIAL IV PRN
--- NOTE | 2019-12-18 00:11 | NUR ---
PT TRANSFERRED TO ROOM IN STABLE CONDITION
[2019-12-18 00:15] VITALS: BP 125/72
--- NOTE | 2019-12-18 00:15 | NUR ---
CLAM SHUCKING MACHINE TENDERPOLISHER ALUMINUM NOTES PATIENT ADMITTED FROM ER FOR CHEST PAIN AND R/O ACS. TRANSPORTED VIA [employer]. A/OX2-3; PRIMARY LANGUAGE RUSSIAN. TELE MONITOR READING NSR, HEART RATE 61. STABLE ON RA; PATIENT DENIES SOB. PATIENT C/O OF LEFT UPPER BODY PAIN RATED 8/10. IV PRESENT ON LEFT AC, SIZE 18, INTACT & PATENT WITH NS RUNNING 50 ML/HR. UPON SKIN ASSESSMENT, SCABS FOUND ON LEFT LOWER LEG AND PSORIASIS ON BILATERAL ELBOWS; PHOTOS TAKEN AND PLACED IN CHART. BELONGINGS REVIEWED WITH PATIENT. ADMITTING ORDERS IN PLACE. SAFETY MEASURES AND PATIENT'S NEEDS MET. BED LOCKED, ALARM ON, SIDE RAILS X3, CALL LIGHT WITHIN REACH. WILL CONTINUE TO MONITOR.
[2019-12-18] MEDS: MORPHINE SULFATE INJ 2 MG/ML DISP.SYRIN IV PRN ×2 (00:41→09:23)
[2019-12-18 04:00] VITALS: BP 130/64
[2019-12-18] MEDS: ONDANSETRON HCL/PF 4 MG/2 ML VIAL IVP PRN ×3 (04:24→16:29)
--- NOTE | 2019-12-18 06:45 | NUR ---
EDUCATIONAL INSTITUTION CURATOR CLOSING NOTES PATIENT SLEEPING, EASY TO AWAKEN. A/OX2-3. STABLE ON RA; NO S/S OF ACUTE RESPIRATORY DISTRESS; BREATHING IS EVEN AND UNLABORED. NO C/O PAIN AT THIS TIME. TELE MONITOR READING SINUS IZA, HEART RATE 55. IV ON LEFT AC, SIZE 18, INTACT & PATENT WITH NS RUNNING AT 50 ML/HR. SAFETY MEASURES IN PLACE AND PATIENT'S NEEDS MET. BED LOCKED, ALARM ON, SIDE RAILS X2, CALL LIGHT WITHIN REACH. WILL ENDORSE TO DAY SHIFT RN PLAN OF CARE.
[2019-12-18 07:13] LABS: BASOPHILS % (AUTO) 0.9 % (0.0-2.0); EOSINOPHILS % (AUTO) 3.3 % (0.0-6.0); HEMATOCRIT 37 % (39-51); HEMOGLOBIN 12.3 g/dL (13.5-17.5); LYMPHOCYTES # (AUTO) 1.1 /CMM (0.8-4.8); LYMPHOCYTES % (AUTO) 23.5 % (20.0-44.0); MEAN CORPUSCULAR HGB CONC 33 g/dl (31.0-36.0); MEAN CORPUSCULAR VOLUME 94 fL (80-96); MONOCYTES # (AUTO) 0.4 /CMM (0.1-1.30); MONOCYTES % (AUTO) 8.9 % (2.0-12.0); NEUTROPHILS # (AUTO) 2.9 /CMM (1.8-8.9); NEUTROPHILS % (AUTO) 63.4 % (43.0-81.0); PLATELET COUNT (AUTO) 181 /CMM (150-450); RED BLOOD CELL COUNT(AUTO) 3.99 MIL/uL (4.5-6.0); WHITE BLOOD COUNT (AUTO) 4.6 K/uL (4.3-11.0)
[2019-12-18 07:28] LABS: CALCIUM, SERUM 7.7 mg/dL (8.5-10.1); CREATININE 0.9 mg/dL (0.6-1.3); MAGNESIUM 1.9 mg/dL (1.8-2.4); PHOSPHORUS 2.2 mg/dL (2.5-4.9)
[2019-12-18] MEDS ORDERED: PANTOPRAZOLE 40 MG TABLET.DR PO SCH (07:30)
--- NOTE | 2019-12-18 07:30 | NUR ---
TEXTILE EXAMINER OPENING NOTES PATIENT IN BED SLEEPING, EASY TO AWAKEN. A/OX2-3. STABLE ON RA; NO S/S OF ACUTE RESPIRATORY DISTRESS; BREATHING IS EVEN AND UNLABORED. NO C/O PAIN AT THIS TIME. IV ON LEFT AC, SIZE 18, INTACT & PATENT WITH NS RUNNING AT 50 ML/HR. SAFETY MEASURES IN PLACE AND PATIENT'S NEEDS MET. BED LOCKED, ALARM ON, SIDE RAILS X2, CALL LIGHT WITHIN REACH. WILL CONTINUE TO MONITOR.
[2019-12-18 07:42] LABS: THYROID STIMULATING HORMONE 2.04 uIU/mL (0.358-3.74)
[2019-12-18 08:00] VITALS: BP 126/66
[2019-12-18] MEDS ORDERED: ASPIRIN 81 MG TAB.CHEW PO SCH (09:00)
[2019-12-18] MEDS ORDERED: MULTIVITAMINS,THERAGRAN 1 UDTAB TABLET PO SCH (09:00)
[2019-12-18] MEDS ORDERED: FOLIC ACID 1 MG TABLET PO SCH (09:00)
[2019-12-18] MEDS ORDERED: THIAMINE HCL 100 MG TABLET PO SCH (09:00)
[2019-12-18] MEDS ORDERED: NITROGLYCERIN 0.4 MG/TAB BOTTLE SL ONE ×2 (11:00→11:30)
[2019-12-18] MEDS ORDERED: METOPROLOL TARTRATE INJ 5 MG/5 ML AMPUL IVP PRN ×2 (11:00→11:30)
--- NOTE | 2019-12-18 11:00 | NUR ---
RN NOTES PT TRANSPORTED VIA WHEELCHAIR WITH 2 PERSON ASSIST TO RADIOLOGY FOR CT CARDIO, IN STABLE CONDITION.
[2019-12-18] MEDS ORDERED: METOPROLOL TARTRATE INJ 5 MG/5 ML AMPUL ONE (11:12)
[2019-12-18] MEDS ORDERED: NITROGLYCERIN 0.4 MG/TAB BOTTLE ONE (11:12)
[2019-12-18] MEDS ORDERED: IOHEXOL-350 100 ML VIAL IV ONE (11:33)
[2019-12-18] MEDS ORDERED: IV NS 0.9% 250 ML IV ONE (11:33)
--- NOTE | 2019-12-18 11:49 | NUR ---
POST CTA PROCEDURE WELL TOLERATED BY THE PT. NOT IN RESPIRATORY DISTRESS, V/S STABLE, KEPT RESTED AND COMFORTABLE. REPORT GIVEN TO TEJ NGUYEN FOR MATTHEW.
[2019-12-18 12:00] VITALS: BP 129/67
[2019-12-18] MEDS ORDERED: NEUTRA PHOS 1 POWD.PACKET PO ONE (13:00)
[2019-12-18] MEDS ORDERED: OMEP40CA13 PO (13:44)
[2019-12-18 16:00] VITALS: BP 122/71
--- NOTE | 2019-12-18 18:21 | NUR ---
WELL PULLER HEAD NOTES PT DISCHARGE TO HOME VIA TAXI. PT ALERT AND ORIENTED X 2-3. NO DISTRESS NOTED. RESPIRATION IS EVEN AND EASY WITH NO SOB. ASSISTED IN CHANGING WITH OWN CLOTHES. WHEELED TO THE LOBBY IN WHEELCHAIR. PT LEFT THE FACILITY IN STABLE CONDITION.
== END 2019-12-18 18:09 | disposition home or self-care (01) | DRG 241 ==
LOC: ER 21:01 → TELE1 23:25 → MEDSG1 12-18 08:00
PROVIDERS: ADMIT Registered Nurse
DX: K29.20 Alcoholic gastritis without bleeding (principal); Y90.7 Blood alcohol level of 200-239 mg/100 ml; F10.129 Alcohol abuse with intoxication, unspecified; Z59.0 Homelessness; K70.30 Alcoholic cirrhosis of liver without ascites; I10 Essential (primary) hypertension; D64.9 Anemia, unspecified; Z86.73 Personal history of transient ischemic attack (TIA), and cerebral infarction without residual deficits; Z79.899 Other long term (current) drug therapy; K21.9 Gastro-esophageal reflux disease without esophagitis; I25.2 Old myocardial infarction; Z98.890 Other specified postprocedural states; K20.8 Other esophagitis; G89.29 Other chronic pain
CPT/HCPCS: 36415; 71045-TC; 75574; 80048-TC; 80061-TC; 80305; 83735-TC; 84100-TC; 84443-TC; 84484-TC; 85025-TC; 87081-TC; 93307-TC; C9803-CS; G0378; G0480; J2060; J2270; J2405; J3490; J7030; J7050; Q9967

== ENCOUNTER 2020-05-06 12:41 | Emergency (ER) | payer MEDICAID ==
[~2020-05-06] VITALS: Ht 170.2 cm; Wt 95.3 kg
[~2020-05-06 12:41] MED LIST changes: -LORA-259 PO; +OMEP40CA13 PO; -ONDA4TAB5 PO
--- NOTE | 2020-05-06 13:15 | NUR ---
BIBRA FROM HOME TO ER BED 7. AAOX4. NOT IN RESP DISTRESS. AMBULATORY ON STEADY GAIT BUT WITH A LIMP. CAME IN FOR A CHRONIC INGUINAL HERNIA THAT IS WORSENING IN THE PAST 2 WEEKS. NOT S/S OF INCARCERATION. PT ALSO COMPLAINING OF A RIGHT FOOR SWELLING AND REDNESS. AWAITING MD FOR EVAL.
--- NOTE | 2020-05-06 13:21 | NUR ---
PT TO CT ON LILIANA
[2020-05-06 14:09] LABS: BASOPHILS % (AUTO) 0.7 % (0.0-2.0); EOSINOPHILS % (AUTO) 3.9 % (0.0-6.0); HEMATOCRIT 36 % (39-51); HEMOGLOBIN 11.7 g/dL (13.5-17.5); LYMPHOCYTES # (AUTO) 1.2 /CMM (0.8-4.8); LYMPHOCYTES % (AUTO) 20.5 % (20.0-44.0); MEAN CORPUSCULAR HGB CONC 33 g/dl (31.0-36.0); MEAN CORPUSCULAR VOLUME 92 fL (80-96); MONOCYTES # (AUTO) 0.5 /CMM (0.1-1.30); MONOCYTES % (AUTO) 8.2 % (2.0-12.0); NEUTROPHILS # (AUTO) 3.8 /CMM (1.8-8.9); NEUTROPHILS % (AUTO) 66.7 % (43.0-81.0); PLATELET COUNT (AUTO) 188 /CMM (150-450); WHITE BLOOD COUNT (AUTO) 5.7 K/uL (4.3-11.0)
[2020-05-06 14:19] LABS: CALCIUM, SERUM 8.8 mg/dL (8.5-10.1); CREATININE 0.9 mg/dL (0.6-1.3)
[2020-05-06 14:33] LABS: ALBUMIN 3.4 g/dL (3.4-5.0); BILIRUBIN,DIRECT 0.1 mg/dL (0.0-0.2); BILIRUBIN,TOTAL 0.5 mg/dL (0.2-1.0); TOTAL PROTEIN, SERUM 6.9 g/dL (6.4-8.2)
[2020-05-06] MEDS ORDERED: CEPH500T PO (15:19)
[2020-05-06] MEDS ORDERED: SULF1TAB48 PO (15:19)
--- NOTE | 2020-05-06 15:32 | NUR ---
Patient discharged to home in stable condition. Written and verbal after care instructions given. Patient verbalizes understanding of instruction.IV removed. Catheter intact and site benign. Pressure and 4x4 applied to site. No bleeding noted. Pt ambulatory with a steady gait
[2020-05-06 15:33] VITALS: BP 113/67
[2020-05-06] MEDS ORDERED: NAPR-1009 PO (15:50)
== END 2020-05-06 15:50 | disposition home or self-care (01) ==
LOC: ER 12:43
DX: L03.115 Cellulitis of right lower limb (principal); K40.90 Unilateral inguinal hernia, without obstruction or gangrene, not specified as recurrent; I10 Essential (primary) hypertension; F10.10 Alcohol abuse, uncomplicated; Y90.9 Presence of alcohol in blood, level not specified; Z86.73 Personal history of transient ischemic attack (TIA), and cerebral infarction without residual deficits; Z79.899 Other long term (current) drug therapy
CPT/HCPCS: 36415; 80048-TC; 80076-TC; 83605-TC; 83690-TC; 85025-TC; 85730-TC; 87040-TC; 93971-TC

== ENCOUNTER 2020-05-10 17:51 | Inpatient (IN) | payer MEDICAID ==
[~2020-05-10] VITALS: Ht 177.8 cm; Wt 97.1 kg
[~2020-05-10 17:51] MED LIST changes: +CEPH500T PO; +NAPR-1009 PO; +SULF1TAB48 PO
--- NOTE | 2020-05-10 18:00 | NUR ---
bibra90 frm home c/o lower abdominal pain, inguinal hernia noted. No BM x 2 days. On room air, breathing evenly and unlabored. IV access initiated and blood drawned. Urine collected and sent to lab. Kept comfortable, will continue to monitor accordingly.
[2020-05-10] MEDS ORDERED: MORPHINE SULFATE INJ 4 MG/ML DISP.SYRIN ONE (18:07)
[2020-05-10] MEDS ORDERED: ONDANSETRON HCL/PF 4 MG/2 ML VIAL ONE ×2 (18:07→21:07)
[2020-05-10 18:17] LABS: BASOPHILS % (AUTO) 0.5 % (0.0-2.0); HEMATOCRIT 39 % (39-51); HEMOGLOBIN 12.9 g/dL (13.5-17.5); LYMPHOCYTES % (AUTO) 10.6 % (20.0-44.0); MEAN CORPUSCULAR HGB CONC 33 g/dl (31.0-36.0); MEAN CORPUSCULAR VOLUME 92 fL (80-96); MONOCYTES # (AUTO) 0.5 /CMM (0.1-1.30); MONOCYTES % (AUTO) 5.8 % (2.0-12.0); NEUTROPHILS # (AUTO) 7.5 /CMM (1.8-8.9); NEUTROPHILS % (AUTO) 81.1 % (43.0-81.0); PLATELET COUNT (AUTO) 187 /CMM (150-450); RED BLOOD CELL COUNT(AUTO) 4.28 MIL/uL (4.5-6.0); WHITE BLOOD COUNT (AUTO) 9.3 K/uL (4.3-11.0)
[2020-05-10] MEDS ORDERED: IV NS 0.9% 1,000 ML BAG IV ONE (18:30)
[2020-05-10] MEDS ORDERED: ONDANSETRON HCL/PF 4 MG/2 ML VIAL IVP ONE ×2 (18:30→21:00)
[2020-05-10] MEDS ORDERED: MORPHINE SULFATE INJ 2 MG/ML DISP.SYRIN IV ONE (18:30)
[2020-05-10 18:42] LABS: ALBUMIN 4.2 g/dL (3.4-5.0); BILIRUBIN,DIRECT 0.2 mg/dL (0.0-0.2); BILIRUBIN,TOTAL 0.7 mg/dL (0.2-1.0); CALCIUM, SERUM 8.5 mg/dL (8.5-10.1); CREATININE 1.2 mg/dL (0.6-1.3); POTASSIUM 4.6 mmol/L (3.5-5.1); TOTAL PROTEIN, SERUM 8.1 g/dL (6.4-8.2)
--- NOTE | 2020-05-10 19:17 | NUR ---
DR. ARMSTRONG SPEAKING WITH DR. GAUTAM (ORGANIC CHEMIST SURGERY)
--- NOTE | 2020-05-10 20:06 | NUR ---
DR. ARMSTRONG SPEAKING WITH DR. COLEMAN REGARDING ADMISSION
[2020-05-10] MEDS ORDERED: IV D5/0.45 NACL 1,000 ML IV PRN (20:30)
[2020-05-10] MEDS ORDERED: ZOLPIDEM TARTRATE 5 MG TABLET PO PRN (20:30)
[2020-05-10] MEDS ORDERED: Z GUARD REMEDY 2 OZ OINT TP PRN (20:30)
[2020-05-10] MEDS ORDERED: ONDANSETRON HCL/PF 4 MG/2 ML VIAL IVP PRN (20:30)
[2020-05-10] MEDS ORDERED: ACETAMINOPHEN 325 MG TABLET PO PRN (20:30)
[2020-05-10] MEDS ORDERED: MAGNESIUM HYDROXIDE 30 ML UDC PO PRN (20:30)
[2020-05-10] MEDS ORDERED: MAG HYDROX/AL HYDROX/SIMETH 30 ML UDC PO PRN (20:30)
--- NOTE | 2020-05-10 21:01 | NUR ---
covid negative per lab
--- NOTE | 2020-05-10 21:29 | NUR ---
REPORT GIVEN TO MALCOLM BURNHAM FOR MATTHEW PT TRANSPORTED TO 3RD FLOOR
[2020-05-10 21:30] VITALS: BP 144/77
--- NOTE | 2020-05-10 21:35 | NUR ---
RN NOTES PT RECEIVED ALERT AND ORIENTED X4.NO RESPIRATORY DISTRESS NO PAIN OR DISCOMFORT NOTED AT THIS TIME. CALL LIGHT WITHIN REACH ON ROOM AIR TOLERATING WELL.CALL LIGHT WITHIN REACH. ORIENTED TO ROOM. ALL NURSING NEEDS MET.SAFETY MEASURES PROVIDED.WILL CONTINUE TO MONITOR.
[2020-05-10] MEDS: MORPHINE SULFATE INJ 2 MG/ML DISP.SYRIN IV PRN (22:34)
[2020-05-11] MEDS: MORPHINE SULFATE INJ 2 MG/ML DISP.SYRIN IV PRN ×2 (05:24→21:24)
--- NOTE | 2020-05-11 06:58 | NUR ---
RN NOTES PT ASLEEP IN BED.NO RESPIRATORY DISTRESS NO PAIN OR DISCOMFORT NOTED AT THIS TIME. CALL LIGHT WITHIN REACH ON ROOM AIR TOLERATING WELL. MORPHINE PROVIDED, AND ZOFRAN FOR NAUSEA IN THE AM. CALL LIGHT WITHIN REACH. ORIENTED TO ROOM. ALL NURSING NEEDS MET.SAFETY MEASURES PROVIDED.WILL ENDORSE CARE TO DAY SHIFT NURSE..
[2020-05-11 07:59] LABS: BASOPHILS % (AUTO) 0.5 % (0.0-2.0); EOSINOPHILS % (AUTO) 4.1 % (0.0-6.0); HEMATOCRIT 37 % (39-51); HEMOGLOBIN 12.2 g/dL (13.5-17.5); LYMPHOCYTES # (AUTO) 1.4 /CMM (0.8-4.8); LYMPHOCYTES % (AUTO) 21.7 % (20.0-44.0); MEAN CORPUSCULAR HGB CONC 33 g/dl (31.0-36.0); MEAN CORPUSCULAR VOLUME 91 fL (80-96); MONOCYTES # (AUTO) 0.5 /CMM (0.1-1.30); MONOCYTES % (AUTO) 8.2 % (2.0-12.0); NEUTROPHILS # (AUTO) 4.1 /CMM (1.8-8.9); NEUTROPHILS % (AUTO) 65.5 % (43.0-81.0); PLATELET COUNT (AUTO) 146 /CMM (150-450); RED BLOOD CELL COUNT(AUTO) 4.05 MIL/uL (4.5-6.0); WHITE BLOOD COUNT (AUTO) 6.2 K/uL (4.3-11.0)
[2020-05-11 08:00] VITALS: BP 131/69
--- NOTE | 2020-05-11 08:00 | NUR ---
RN OPENING NOTE PT IS A/O X3 AND GREENLANDIC SPEAKING. ABLE TO MAKE NEEDS KNOWN TO NURSES. CURRENTLY ON RA WITH NO SOB OR RESPIRATORY DISTRESS PRESENT. PT IS AMBULATORY WITH ASSISTANCE. SKIN IS INTACT. CURRENTLY ON NPO STATUS DUE TO UPCOMING SURGERY FOR INCARCERATED HERNIA. HL PRESENT IN R AC, 18G. SAFETY MEASURES IN PLACE. SIDE RAILS RAISED. BED LOWERED. CALL LIGHT WITHIN REACH. WILL CONTINUE TO MONITOR.
[2020-05-11 08:27] LABS: CREATININE 0.9 mg/dL (0.6-1.3); MAGNESIUM 1.9 mg/dL (1.8-2.4)
[2020-05-11] MEDS: PANTOPRAZOLE 40 MG VIAL IV SCH (09:00)
[2020-05-11] MEDS ORDERED: MIDAZOLAM HCL 2 MG/2ML VIAL ONE (12:39)
[2020-05-11] MEDS ORDERED: FENTANYL PF 100MCG/2ML AMPUL ONE (12:40)
[2020-05-11] MEDS ORDERED: FAMOTIDINE/PF INJ 20 MG/2 ML VIAL IV ONE (12:40)
[2020-05-11] MEDS ORDERED: ROCURONIUM BROMIDE 50 MG/5 ML ONE (12:41)
[2020-05-11] MEDS ORDERED: BUPIVACAINE 0.5 % PF 150 MG/30 ML VIAL ONE (13:47)
[2020-05-11] MEDS ORDERED: HYDROMORPHONE 1 MG/1 ML DISP.SYRIN ONE (14:25)
[2020-05-11] MEDS ORDERED: ATROPINE SULFATE 1 MG/10 ML DISP.SYRIN ONE (14:45)
--- NOTE | 2020-05-11 15:30 | NUR ---
RN NOTE PT RETURNED FROM SURGERY OF L HERNIA REPAIR BY DR GAUTAM. PT A/O X3 WITH NO SOB/RESPIRATORY DISTRESS PRESENT. ABDOMEN IS SOFT. LUNCH TRAY GIVEN WITH FLUIDS. PT IS ABLE TO TOLERATE SWALLOWING FOOD AND DRINK WITHOUT ISSUE. V/S STABLE. WILL CONTINUE TO MONITOR.
--- NOTE | 2020-05-11 18:34 | NUR ---
RN NOTE PT IS ABLE TO EAT, DRINK, AND VOID WITHOUT DIFFICULTY.
[2020-05-11] MEDS: HYDROCODONE/APAP 5/325MG TABLET PO PRN (18:41)
--- NOTE | 2020-05-11 18:49 | NUR ---
RN CLOSING NOTE PT IS A/O X3 AND K[place]ILI SPEAKING. ABLE TO MAKE NEEDS KNOWN TO NURSES. CURRENTLY ON RA WITH NO SOB OR RESPIRATORY DISTRESS PRESENT. PT IS AMBULATORY WITH ASSISTANCE. BATHROOM PRIVILEGES. SKIN IS INTACT. SURGICAL SITE ON LEFT GROIN PRESENT, SITE KEPT CLEAN AND DRY. ON REGULAR DIET. HL PRESENT IN R AC, 18G. SAFETY MEASURES IN PLACE. SIDE RAILS RAISED. BED LOWERED. CALL LIGHT WITHIN REACH. ROUTINE MEDS GIVEN. REPORT GIVEN TO NIGHT NURSE.
[2020-05-11 18:52] VITALS: BP 120/70
--- NOTE | 2020-05-11 19:40 | NUR ---
MS RN NOTES RECEIVED ON BED A/O X3,SPEAK CYPRIOT,S/P LEFT INGUINAL HERNIA REPAIR BY DR GAUTAM,STERI STRIPS IN PLACE, NO BLEEDING NOTED.WITH LISSETH SALINE LOCK,IVF INFUSING AT 75ML/HR RATE,HOLD THIS TIME,PATIENT ATE HIS DINNER FOOD 100% AND ABLE TO DRINKS A LOT OF WATER.WILL MONITOR FOR PAIN.CALL LIGHT IN REACH,NEEDS ANTICIPATED.
[2020-05-11 20:00] VITALS: BP 104/61
[2020-05-11 21:42] VITALS: BP 104/61
--- NOTE | 2020-05-11 21:54 | NUR ---
MS RN NOTES PAIN MANAGEMENT C/P LEFT GROIN PAIN 8/10 ON PAIN SCALE,MORPHINE 2MG IV GIVEN ORDERED. ENCOURAGED TO TURN FROM SIDE TO SIDES TO EXPEL GAS.
[2020-05-12] MEDS: MORPHINE SULFATE INJ 2 MG/ML DISP.SYRIN IV PRN (01:32)
--- NOTE | 2020-05-12 01:32 | NUR ---
MS RN NOTES AWAKE,C/O LOWER BACK PAIN 9/10 ON PAIN SCALE,MORPHINE 2MG IV GIVEN ORDERED.
--- NOTE | 2020-05-12 07:07 | NUR ---
MS RN NOTES PAIN IMPROVED,ABLE TO WALK TO THE TOILET WITH ASSIST,HAD BM,VOIDING FREELY VIA URINAL.POSSIBLE DISCHARGE TODAY WHEN STABLE.
[2020-05-12 07:28] LABS: BASOPHILS % (AUTO) 0.4 % (0.0-2.0); EOSINOPHILS % (AUTO) 1.4 % (0.0-6.0); HEMATOCRIT 37 % (39-51); HEMOGLOBIN 12.2 g/dL (13.5-17.5); LYMPHOCYTES # (AUTO) 0.7 /CMM (0.8-4.8); LYMPHOCYTES % (AUTO) 10.3 % (20.0-44.0); MEAN CORPUSCULAR HGB CONC 33 g/dl (31.0-36.0); MEAN CORPUSCULAR VOLUME 91 fL (80-96); MONOCYTES # (AUTO) 0.6 /CMM (0.1-1.30); MONOCYTES % (AUTO) 8.2 % (2.0-12.0); NEUTROPHILS # (AUTO) 5.6 /CMM (1.8-8.9); NEUTROPHILS % (AUTO) 79.7 % (43.0-81.0); PLATELET COUNT (AUTO) 153 /CMM (150-450); RED BLOOD CELL COUNT(AUTO) 4.04 MIL/uL (4.5-6.0)
[2020-05-12 07:38] LABS: CALCIUM, SERUM 8.7 mg/dL (8.5-10.1); CREATININE 1.1 mg/dL (0.6-1.3); POTASSIUM 4.3 mmol/L (3.5-5.1)
[2020-05-12 08:00] VITALS: BP 120/61
[2020-05-12] MEDS: PANTOPRAZOLE 40 MG VIAL IV SCH (08:04)
[2020-05-12] MEDS ORDERED: COLC0.6C3 PO (08:06)
[2020-05-12] MEDS ORDERED: HYDR-4275 PO (08:06)
[2020-05-12] MEDS ORDERED: ONDA4TAB5 PO (08:06)
[2020-05-12] MEDS: HYDROCODONE/APAP 5/325MG TABLET PO PRN ×2 (10:49→17:40)
[2020-05-12 16:00] VITALS: BP 124/56
--- NOTE | 2020-05-12 18:40 | NUR ---
MS/RN - Shift remarks Patient is alert and oriented x 3, s/p left inguinal hernia repair by Dr. Escobar yesterday, left groin incision site with steri-strips in place, pain well controlled with Mcdonough, comfortable on room air, ambulatory. Patient discharged home in stable condition. Reviewed discharge instructions with patient and he verbalized understanding. Patient aware that he needs to f/u with Dr. Conner and Dr. Escobar. Written prescription for Mcdonough given to the patient and other home meds was electronically sent to [facility]. Saline lock removed on the RAC with catheter tip intact, no redness, no swelling noted at the site. Discharge papers signed and copies given. Patient left the unit at 18:30 via private car.
== END 2020-05-12 18:30 | disposition home or self-care (01) | DRG 228 ==
LOC: ER 17:53 → MED 19:47
PROVIDERS: ADMIT Student in an Organized Health Care Education/Training Program; ATTEND Nurse Practitioner Acute Care
PROC: 0YU60JZ Supplement Left Inguinal Region with Synthetic Substitute, Open Approach (ICD-10-PCS; principal; 2020-05-11)
DX: K40.30 Unilateral inguinal hernia, with obstruction, without gangrene, not specified as recurrent (principal); K70.30 Alcoholic cirrhosis of liver without ascites; E86.0 Dehydration; I10 Essential (primary) hypertension; G47.33 Obstructive sleep apnea (adult) (pediatric); I25.10 Atherosclerotic heart disease of native coronary artery without angina pectoris; Z20.822 Contact with and (suspected) exposure to COVID-19; D63.8 Anemia in other chronic diseases classified elsewhere; Z86.73 Personal history of transient ischemic attack (TIA), and cerebral infarction without residual deficits; L40.9 Psoriasis, unspecified; M10.9 Gout, unspecified; E66.9 Obesity, unspecified; Z68.30 Body mass index [BMI] 30.0-30.9, adult; Z71.3 Dietary counseling and surveillance; Z59.0 Homelessness; F10.10 Alcohol abuse, uncomplicated; Y90.9 Presence of alcohol in blood, level not specified
CPT/HCPCS: 36415; 71045-TC; 80048-TC; 80061-TC; 80076-TC; 83735-TC; 84100-TC; 85025-TC; 85730-TC; 86850-TC; 87081-TC; C1781; C9113; G0378; J0461; J0690; J1170; J2250; J2270; J2405; J2704; J2765; J3010; J3490; J7030

== ENCOUNTER 2020-05-15 16:48 | Emergency (ER) | payer MEDICAID ==
[~2020-05-15] VITALS: Ht 170.2 cm; Wt 97.5 kg
[~2020-05-15 16:48] MED LIST changes: -CEPH500T PO; +COLC0.6C3 PO; +HYDR-4275 PO; -NAPR-1009 PO; +ONDA4TAB5 PO; -SULF1TAB48 PO
[2020-05-15] MEDS ORDERED: KETOROLAC TROMETHAMINE INJ 30 MG/ML VIAL IV ONE (17:30)
[2020-05-15 17:37] LABS: BASOPHILS % (AUTO) 0.6 % (0.0-2.0); EOSINOPHILS % (AUTO) 5.8 % (0.0-6.0); HEMATOCRIT 35 % (39-51); HEMOGLOBIN 11.6 g/dL (13.5-17.5); LYMPHOCYTES # (AUTO) 1.2 /CMM (0.8-4.8); LYMPHOCYTES % (AUTO) 20.5 % (20.0-44.0); MEAN CORPUSCULAR HGB CONC 33 g/dl (31.0-36.0); MEAN CORPUSCULAR VOLUME 91 fL (80-96); MONOCYTES # (AUTO) 0.6 /CMM (0.1-1.30); MONOCYTES % (AUTO) 11.1 % (2.0-12.0); NEUTROPHILS # (AUTO) 3.6 /CMM (1.8-8.9); PLATELET COUNT (AUTO) 191 /CMM (150-450); RED BLOOD CELL COUNT(AUTO) 3.85 MIL/uL (4.5-6.0); WHITE BLOOD COUNT (AUTO) 5.8 K/uL (4.3-11.0)
[2020-05-15] MEDS ORDERED: KETOROLAC TROMETHAMINE 15 MG/ML VIAL ONE (17:41)
[2020-05-15 17:44] LABS: CALCIUM, SERUM 8.6 mg/dL (8.5-10.1); POTASSIUM 4.2 mmol/L (3.5-5.1)
[2020-05-15] MEDS ORDERED: IOHEXOL-300 100 ML VIAL IV ONE (17:53)
[2020-05-15] MEDS ORDERED: IV NS 0.9% 250 ML IV ONE (17:53)
--- NOTE | 2020-05-15 18:43 | NUR ---
Patient awake alert orriented kazakh speaking left groin hernia 3 days ago noted pain and red to site MD aware
--- NOTE | 2020-05-15 18:44 | NUR ---
Urine obtained and send to lab .
[2020-05-15 18:52] LABS: BILIRUBIN,URINE Negative (NEGATIVE); COLOR,URINE YELLOW (YELLOW); LEUKOCYTE ESTERASE ,URINE Negative (NEGATIVE); NITRITE, URINE Negative (NEGATIVE); PH,URINE 5.5 (5.0-8.0); PROTEIN,URINE Negative (NEGATIVE); UGLUCOSE Negative (NEGATIVE); UROBILINOGEN,URINE 0.2 EU/dL (0.2)
--- NOTE | 2020-05-15 19:02 | NUR ---
GIVEN REPORT TO MICHAEL BURNHAM
--- NOTE | 2020-05-15 19:26 | NUR ---
DR. VIZCARRA SPEAKING WITH DR. GAUTAM
[2020-05-15] MEDS ORDERED: HYDR-4275 PO (19:57)
[2020-05-15] MEDS ORDERED: POLY17PO4 PO (19:57)
[2020-05-15] MEDS ORDERED: BISA-79 PO (19:57)
[2020-05-15] MEDS ORDERED: IBUP-1955 PO (20:00)
--- NOTE | 2020-05-15 20:06 | NUR ---
IV removed. Catheter intact and site benign. Pressure and 4x4 applied to site. No bleeding noted.
[2020-05-15 20:07] VITALS: BP 126/73
--- NOTE | 2020-05-15 20:07 | NUR ---
Patient discharged to home in stable condition. Written and verbal after care instructions given. Patient verbalizes understanding of instruction and RX. Pt told to call MD Escobar for follow up.
== END 2020-05-15 20:19 | disposition home or self-care (01) ==
LOC: ER 16:54
DX: S30.1XXA Contusion of abdominal wall, initial encounter (principal); G89.18 Other acute postprocedural pain; N50.89 Other specified disorders of the male genital organs; I10 Essential (primary) hypertension; F10.10 Alcohol abuse, uncomplicated; Y90.9 Presence of alcohol in blood, level not specified; Z86.73 Personal history of transient ischemic attack (TIA), and cerebral infarction without residual deficits; Z79.899 Other long term (current) drug therapy; Z98.890 Other specified postprocedural states; X58.XXXA Exposure to other specified factors, initial encounter; Y93.89 Activity, other specified; Y92.89 Other specified places as the place of occurrence of the external cause; Y99.8 Other external cause status
CPT/HCPCS: 36415; 74177; 80048; 81003; 83605; 85025; 85730; 87086; 96374; 99285; J1885; J7050; Q9967

== ENCOUNTER 2020-06-09 08:12 | Emergency (ER) | payer MEDICAID, OTHER ==
[~2020-06-09] VITALS: Ht 170.2 cm; Wt 97.5 kg
[~2020-06-09 08:12] MED LIST changes: +BISA-79 PO; +IBUP-1955 PO; +POLY17PO4 PO
[2020-06-09 08:19] VITALS: BP 136/60
--- NOTE | 2020-06-09 08:36 | NUR ---
Patient eloped from facility. ER MD notified.
== END 2020-06-09 08:37 | disposition home or self-care (01) ==
LOC: ER 08:18
DX: K59.00 Constipation, unspecified (principal); Z53.29 Procedure and treatment not carried out because of patient's decision for other reasons